=== PATIENT | male | born 1985 | race Hispanic/Latino ===

== ENCOUNTER 2018-07-21 12:04 | Emergency (ER) | payer BC, SELFPAY ==
[2018-07-21 12:05] VITALS: BP 137/73; PULSE 76; RESP 15; TEMP 36.4; O2SAT 99; BMI 23.1
--- NOTE | 2018-07-21 12:31 | ED.DCSUM_ITS ---
- ER Visit Summary Date of Service: 07/21/18 Chief Complaint: [] Very itchy skin rash for about 4 days History of Present Illness: The patient is a 33 M [] history of hepatitis B currently on what he describes as a tamovir medication he is taking for the hip being no other complaints other past history, has not been ill in any way, questionable URI symptoms with some nasal congestion eating and drinking well, the rash involves his torso now his face, he was seen the other day at hospital outside of [place] he was given prednisone when he immediately began taking the prednisone the rash almost completely cleared up now he is out of the prednisone and his rash has recurred., He said no exposures no new medications bowel bladder habits are normal review of systems otherwise negative he is not prone to skin rashes no penile lesions or drainage Physical Examination: [] 137/73, afebrile General, no distress resting comfortably HEENT is generally unremarkable The neck is supple no adenopathy Cardiovascular, regular rate and rhythm Lungs, clear bilateral Abdomen, soft nontender Extremities, no clubbing cyanosis or edema The skin there are scattered to diffuse hives over the torso some coalescent large plaques they are very blanchable soft, there is no petechia purpura skin breakdown, parts of the rash looks like it could represent pityriasis rosea Neurologic, awake alert answering questions appropriately moving all 4 extremities Test Results: [] He looks well there is no indication he requires blood work IV etc. and he agrees with that and simply wants treatment such as prednisone as it helped for to stop the itching Emergency Department Course and Treatment: [] Medically looks well he is afebrile no distress he has had this for about 4 days reports marked improvement with the prednisone, at this time will be started on Kenalog 40 mg IM Atarax for the itching Aveeno bath and follow-up with his outpatient providers in a day or 2 return for change in symptoms Treatment Plan: [] Disposition: [] Home stable Impression: [] Pruritic rash, allergic reaction versus viral causes This note was generated with [employer] software. It may contain incorrect words, spelling, and punctuation that were not noted in review of the chart prior to signing ED Disposition - Plan for ED Patient: Chief Complaint: Rash Referrals: Care Physician,No Primary [Primary Care Provider] -
--- NOTE | 2018-07-21 12:31 | ED.DEP ---
ED Disposition - Plan for ED Patient: Chief Complaint: Rash Instructions: ED Drug React Adverse Other Prescriptions: hydrOXYzine tablet [Atarax tablet] 10 mg PO 4X/DAY PRN PRN #14 tab PRN Reason: Itching Colloidal Oatmeal [Aveeno Baby] 105 gm TP BID #10 bathpacket Referrals: Care Physician,No Primary [Primary Care Provider] - Additional Instructions: Follow-up with your outpatient providers in a few days return for change in symptoms
[2018-07-21] MEDS: Triamcinolone Acetonide 40 MG/ML Vial IM (12:37)
== END 2018-07-21 12:56 | disposition home or self-care (01) ==
LOC: ED 12:36
PROVIDERS: Emergency Provider Emergency Medicine
DX: R21 Rash and other nonspecific skin eruption (principal); L29.9 Pruritus, unspecified; B19.10 Unspecified viral hepatitis B without hepatic coma
CPT/HCPCS: 96372; 99282